=== PATIENT | male | born 1990 | race African-American/Black ===

== ENCOUNTER → 2017-02-08 | Outpatient (CLI) | payer BC, OTHER | LOC: ULTRA 08:39 | DX: N50.9 Disorder of male genital organs, unspecified (principal) ==

== ENCOUNTER 2018-09-11 11:48 | Emergency (ER) | payer OTHER ==
[~2018-09-11] VITALS: Ht 175.3 cm; Wt 82.6 kg
[2018-09-11] MEDS ORDERED: DOXYCYCLINE 10100 MG PO (12:15)
[2018-09-11] MEDS ORDERED: NABUMETONE 500500 M1 PO (12:16)
[2018-09-11] MEDS ORDERED: NORCO 5-325 TA1 EACH PO (13:49)
[2018-09-11] MEDS ORDERED: VALIUM5 MG PO (14:06)
[2018-09-11 14:18] VITALS: BP 116/68
== END 2018-09-11 14:18 | disposition home or self-care (01) ==
LOC: ER 11:48
DX: S46.912A Strain of unspecified muscle, fascia and tendon at shoulder and upper arm level, left arm, initial encounter (principal); S29.012A Strain of muscle and tendon of back wall of thorax, initial encounter; V49.49XA Driver injured in collision with other motor vehicles in traffic accident, initial encounter; Y93.I9 Activity, other involving external motion; Y92.89 Other specified places as the place of occurrence of the external cause; Y99.8 Other external cause status; S09.90XA Unspecified injury of head, initial encounter

== ENCOUNTER → 2018-09-11 | Outpatient (CLI) | payer OTHER ==
[~2018-09-11] MED LIST: DOXYCYCLINE 10100 MG PO; NABUMETONE 500500 M1 PO; NORCO 5-325 TA1 EACH PO; VALIUM5 MG PO
== END ==
LOC: ULTRA 08:47
DX: N50.9 Disorder of male genital organs, unspecified (principal)

== ENCOUNTER → 2018-10-01 | Outpatient (CLI) | payer OTHER | LOC: RAD 14:29 | DX: M47.812 Spondylosis without myelopathy or radiculopathy, cervical region (principal); M48.02 Spinal stenosis, cervical region; V89.2XXA Person injured in unspecified motor-vehicle accident, traffic, initial encounter; Y93.89 Activity, other specified; Y92.89 Other specified places as the place of occurrence of the external cause; Y99.8 Other external cause status ==

== ENCOUNTER → 2018-10-15 | Outpatient (CLI) | payer OTHER | LOC: MRI 10:26 | DX: M47.812 Spondylosis without myelopathy or radiculopathy, cervical region (principal); M50.821 Other cervical disc disorders at C4-C5 level; M48.02 Spinal stenosis, cervical region ==